=== PATIENT | female | born 1985 | race Caucasian/White ===

== ENCOUNTER 2016-12-18 09:14 | Inpatient (IN) | payer OTHER ==
[~2016-12-18] VITALS: Ht 177.8 cm; Wt 103.6 kg
[2016-12-18] MEDS ORDERED: OXYTOCIN 30U/ 0.9% NaCL 500ML 500 ML IV ONE (09:18)
[2016-12-18] MEDS ORDERED: LACTATED RINGERS 1,000 ML IV SCH (09:18)
[2016-12-18] MEDS ORDERED: D5%-LACTATED RINGERS 1,000 ML IV SCH (09:18)
[2016-12-18] MEDS ORDERED: SODIUM CITRATE/CITRIC ACID 30 ML UDC PO PRN (09:30)
[2016-12-18] MEDS ORDERED: FENTANYL PF 100 MCG/2ML IV PRN (09:30)
[2016-12-18] MEDS ORDERED: FENTANYL PF 100 MCG/2ML IVPush PRN (09:30)
[2016-12-18] MEDS ORDERED: PENICILLIN GK 5,000,000 UNITS in DEXTROSE 5% 100 ML IVPB ONE (09:30)
[2016-12-18] MEDS ORDERED: PENICILLIN GK 2,500,000 UNITS in DEXTROSE 5% 100 ML IVPB SCH (09:30)
[2016-12-18] MEDS ORDERED: SODIUM CHLORIDE FLUSH 10ML SYR IVF PRN (09:30)
[2016-12-18] MEDS ORDERED: METOCLOPRAMIDE 5 MG/ML, 2ML IVPush PRN (09:30)
[2016-12-18] MEDS ORDERED: NEWBORN KIT ONE (09:51)
[2016-12-18] MEDS ORDERED: LIDOCAINE 1%, 20ML ONE (09:51)
[2016-12-18] MEDS ORDERED: OXYTOCIN 30U/ 0.9% NaCL 500ML 500 ML ONE ×2 (09:52→19:18)
[2016-12-18] MEDS ORDERED: MISOPROSTOL 200 MCG TABLET ONE (09:52)
[2016-12-18 09:55] LABS: HEMATOCRIT 35.8 % (34.6-47.8); HEMOGLOBIN 11.9 g/dL (11.7-16.4); WHITE BLOOD COUNT 7.5 x10^3/uL (3.4-10)
[2016-12-18] MEDS ORDERED: OXYTOCIN 30U/ 0.9% NaCL 500ML 500 ML IV SCH (18:26)
[2016-12-18] MEDS ORDERED: HYDROcodone/APAP 5/325 TABLET PO PRN ×2 (18:30)
[2016-12-18] MEDS ORDERED: DOCUSATE 100 MG CAPSULE PO PRN (18:30)
[2016-12-18] MEDS ORDERED: OXYTOCIN 10 UNITS/ML, 1ML IM PRN (18:30)
[2016-12-18] MEDS ORDERED: MISOPROSTOL 200 MCG TABLET PR PRN (18:30)
[2016-12-18] MEDS ORDERED: METHYLERGONOVINE 0.2 MG/ML IM PRN (18:30)
[2016-12-18] MEDS: IBUPROFEN 600 MG TABLET PO PRN (19:57)
[2016-12-18 20:00] VITALS: BP 122/77
[2016-12-18 21:01] VITALS: BP 122/78
[2016-12-19 00:32] VITALS: BP 107/59
[2016-12-19 01:37] LABS: HEMATOCRIT 34.2 % (34.6-47.8); HEMOGLOBIN 11.4 g/dL (11.7-16.4); WHITE BLOOD COUNT 11.4 x10^3/uL (3.4-10)
[2016-12-19] MEDS: IBUPROFEN 600 MG TABLET PO PRN ×2 (04:02→13:49)
[2016-12-19 04:10] VITALS: BP 117/77
[2016-12-19 07:00] VITALS: BP 115/76
[2016-12-19] MEDS: PRENATAL VIT/IRON/FA 1 EACH TABLET PO SCH (09:00)
[2016-12-19 11:50] VITALS: BP 125/88
[2016-12-19 20:30] VITALS: BP 113/76
[2016-12-20 07:10] VITALS: BP 113/82
[2016-12-20] MEDS: PRENATAL VIT/IRON/FA 1 EACH TABLET PO SCH (07:53)
== END 2016-12-20 12:27 | disposition home or self-care (01) | DRG 775 ==
LOC: LDIP 09:14 → 2NW 19:36
PROVIDERS: ADMIT Obstetrics & Gynecology; ATTEND Obstetrics & Gynecology
PROC: 10E0XZZ Delivery of Products of Conception, External Approach (ICD-10-PCS; principal; 2016-12-18)
PROC: 10907ZC Drainage of Amniotic Fluid, Therapeutic from Products of Conception, Via Natural or Artificial Opening (ICD-10-PCS; 2016-12-18)
DX: O99.824 Streptococcus B carrier state complicating childbirth (principal); K21.9 Gastro-esophageal reflux disease without esophagitis; Z37.0 Single live birth; O99.62 Diseases of the digestive system complicating childbirth; Z3A.39 39 weeks gestation of pregnancy; O70.0 First degree perineal laceration during delivery; Z88.2 Allergy status to sulfonamides; Z91.040 Latex allergy status; Z88.8 Allergy status to other drugs, medicaments and biological substances
CPT/HCPCS: 36415; 85025; 86850; 86900; J2540; J2590; J7120